=== PATIENT | male | born 2000 | race Caucasian/White ===

== ENCOUNTER 2024-06-14 13:45 | Outpatient (CLI) | payer BC, SELFPAY ==
--- NOTE | ~2024-06-14 | XR_ITS ---
Clinical Indication: Chronic cough PA and lateral views of the chest: Comparison: None Findings: There is probable focal left basilar airspace opacity. Right lung clear.. Cardiomediastina l silhouette is within normal limits. Bones and soft tissues are unremarkable. Impression: Retrocardiac airspace opacity. Correlate for left lower lobe atelectasis or pneumonia. Reviewed, dictated and finalized at location . Impression: Retrocardiac airspace opacity. Correlate for left lower lobe atelectasis or pne umonia.
== END 2024-06-14 13:46 | disposition home or self-care (01) ==
LOC: ANHIMG 13:49
PROVIDERS: PCP Family Medicine; Visit Provider Nurse Practitioner Family
DX: R05.3 Chronic cough (principal)
CPT/HCPCS: 71046

== ENCOUNTER 2024-07-07 11:57 | Outpatient (CLI) | payer BC, SELFPAY ==
--- NOTE | ~2024-07-07 | XR_ITS ---
EXAMINATION: XR chest 2V 07/07/2024 12:11 INDICATION: Pneumonia PROCEDURE: 2 view chest COMPARISON: 06/14/2024 FINDINGS: The lungs are clear. The cardiomediastinal silhouette is within normal limits. There are no pleural effusions. There is no pneumothorax suspected. IMPRESSION: 1: NO ACUTE CARDIOPULMONARY DISEASE. Reviewed, dictated and finalized at location B.
== END 2024-07-07 11:58 | disposition home or self-care (01) ==
LOC: ANHIMG 12:01
PROVIDERS: PCP Family Medicine; Visit Provider Family Medicine
DX: J18.9 Pneumonia, unspecified organism (principal)
CPT/HCPCS: 71046